=== PATIENT | male | born 1960 | race Native Hawaiian/Other Pacific Islander ===

== ENCOUNTER 2019-04-17 10:57 | Outpatient (CLI) | payer OTHER ==
[~2019-04-17 10:57] MED LIST: CITALOPRAM20 MG PO; FURO20TA67 PO; HYDR-3182 PO; MOBIC15 MG PO; MOTRIN PM PO; OLAN2.5T2 PO; PERCOGESI1 PO; POT CL MICRO20 MEQ OR
== END 2019-04-17 23:37 | disposition home or self-care (01) ==
LOC: RAD 10:57
DX: M25.561 Pain in right knee (principal); M25.562 Pain in left knee

== ENCOUNTER 2019-08-23 09:10 | Outpatient (CLI) | payer OTHER | END 2019-08-23 19:54 | disposition home or self-care (01) | LOC: RAD 09:10 | DX: R60.0 Localized edema (principal); R53.83 Other fatigue; R05 Cough; R53.81 Other malaise; Z79.899 Other long term (current) drug therapy; J44.9 Chronic obstructive pulmonary disease, unspecified ==

== ENCOUNTER 2020-01-26 11:12 | Emergency (ER) | payer OTHER ==
[~2020-01-26] VITALS: Ht 180.3 cm; Wt 164.2 kg
[~2020-01-26 11:12] MED LIST changes: +ALBUTEROL0.083 % INH; +CELEXA20 MG PO
[2020-01-26 11:53] LABS: PLATELET COUNT 167 K/uL (142-355)
[2020-01-26 12:03] LABS: POTASSIUM 3.7 mmol/L (3.6-5.2); SODIUM 130 mmol/L (136-145)
[2020-01-26 12:05] LABS: PARTIAL THROMBOPLASTIN TIME 25.4 SECONDS (24.5-33.6)
[2020-01-26 15:40] VITALS: BP 134/82; TEMP 98.6
== END 2020-01-26 15:40 | disposition home or self-care (01) ==
LOC: ED 11:12
PROVIDERS: Hospitalist
DX: J44.9 Chronic obstructive pulmonary disease, unspecified (principal); J11.1 Influenza due to unidentified influenza virus with other respiratory manifestations; M19.90 Unspecified osteoarthritis, unspecified site; R00.0 Tachycardia, unspecified; R06.02 Shortness of breath
CPT/HCPCS: 36415; 36600; 80053; 81000; 82550; 82805; 83880; 84484; 85027; 85610; 85730; 87502; 93005; 94664; 96360; 96361; 96365; 96375; 99284

== ENCOUNTER 2020-01-26 20:44 | Emergency (ER) | payer OTHER ==
[~2020-01-26] VITALS: Ht 180.3 cm; Wt 164.2 kg
[2020-01-26 21:26] LABS: PLATELET COUNT 175 K/uL (142-355)
[2020-01-26 21:44] LABS: POTASSIUM 3.7 mmol/L (3.6-5.2); SODIUM 129 mmol/L (136-145)
[2020-01-26 22:10] VITALS: BP 108/61; TEMP 100.2
== END 2020-01-26 22:10 | disposition home or self-care (01) ==
LOC: ED 20:48
PROVIDERS: Hospitalist
DX: E11.65 Type 2 diabetes mellitus with hyperglycemia (principal); Z79.84 Long term (current) use of oral hypoglycemic drugs; R00.0 Tachycardia, unspecified
CPT/HCPCS: 36415; 80053; 81002; 82962; 84484; 85027; 93005; 96360; 96375; 99284

== ENCOUNTER 2020-01-29 11:15 | Emergency (ER) | payer OTHER ==
[~2020-01-29] VITALS: Ht 180.3 cm; Wt 164.2 kg
[2020-01-29 11:44] LABS: PLATELET COUNT 164 K/uL (142-355)
[2020-01-29 12:20] LABS: POTASSIUM 3.7 mmol/L (3.6-5.2)
[2020-01-29 14:40] VITALS: BP 152/72; TEMP 98
== END 2020-01-29 14:40 | disposition home or self-care (01) ==
LOC: ED 11:15
PROVIDERS: Emergency Medicine
DX: R10.9 Unspecified abdominal pain (principal); R91.8 Other nonspecific abnormal finding of lung field
CPT/HCPCS: 36415; 80053; 81000; 82150; 83690; 85027; 96360; 96375; 99284; J1885; Q9963

== ENCOUNTER 2020-08-30 10:55 | Emergency (ER) | payer OTHER ==
[~2020-08-30] VITALS: Ht 180.3 cm; Wt 144.7 kg
[2020-08-30 11:38] LABS: PLATELET COUNT 187 K/uL (142-355)
[2020-08-30 11:47] LABS: POTASSIUM 3.8 mmol/L (3.6-5.2)
[2020-08-30 12:39] VITALS: BP 153/80; TEMP 98.7
== END 2020-08-30 12:39 | disposition home or self-care (01) ==
LOC: ED 10:55
PROVIDERS: Hospitalist
DX: E11.65 Type 2 diabetes mellitus with hyperglycemia (principal)
CPT/HCPCS: 36415; 80053; 81002; 85027; 99283

== ENCOUNTER 2020-10-12 07:59 | Emergency (ER) | payer OTHER ==
[~2020-10-12] VITALS: Ht 180.3 cm; Wt 161.9 kg
[2020-10-12 08:07] VITALS: TEMP 98.1
[2020-10-12 08:59] LABS: PLATELET COUNT 186 K/uL (142-355)
[2020-10-12 09:06] LABS: POTASSIUM 3.7 mmol/L (3.6-5.2)
[2020-10-12 12:22] VITALS: BP 160/70
== END 2020-10-12 12:23 | disposition home or self-care (01) ==
LOC: ED 07:59
PROVIDERS: Emergency Medicine Emergency Medical Services
DX: K59.09 Other constipation (principal); N39.0 Urinary tract infection, site not specified; N40.3 Nodular prostate with lower urinary tract symptoms
CPT/HCPCS: 36415; 80053; 81000; 83690; 84153; 85027; 87077; 87086; 87088; 87186; 96360; 96365; 99284; J0696; Q9963

== ENCOUNTER 2020-10-13 17:28 | Emergency (ER) | payer OTHER ==
[~2020-10-13] VITALS: Ht 180.3 cm; Wt 161.9 kg
[2020-10-13 17:45] VITALS: BP 202/93; TEMP 97.5
== END 2020-10-13 18:38 | disposition home or self-care (01) ==
LOC: ED 17:28
DX: K59.09 Other constipation (principal); R10.84 Generalized abdominal pain
CPT/HCPCS: 99281

== ENCOUNTER 2020-11-01 12:16 | Emergency (ER) | payer OTHER ==
[~2020-11-01] VITALS: Ht 180.3 cm; Wt 159.7 kg
[2020-11-01 12:57] LABS: PLATELET COUNT 188 K/uL (142-355)
[2020-11-01 13:03] LABS: POTASSIUM 4.4 mmol/L (3.6-5.2)
[2020-11-01 13:16] LABS: PARTIAL THROMBOPLASTIN TIME 26.9 SECONDS (24.5-33.6)
[2020-11-01 17:10] VITALS: BP 126/80; TEMP 97.7
== END 2020-11-01 16:35 | disposition home or self-care (01) ==
LOC: ED 12:16
PROVIDERS: Hospitalist
DX: K59.09 Other constipation (principal); R10.84 Generalized abdominal pain; G89.29 Other chronic pain; R11.2 Nausea with vomiting, unspecified
CPT/HCPCS: 80053; 81000; 82150; 83690; 85027; 85610; 85730; 87651; 96360; 96375; 99284; J2405; Q9963

== ENCOUNTER 2020-11-10 14:23 | Emergency (ER) | payer OTHER ==
[~2020-11-10] VITALS: Ht 180.3 cm; Wt 159.7 kg
[2020-11-10 14:33] VITALS: TEMP 97.5
[2020-11-10 15:06] VITALS: BP 148/85
[2020-11-10 15:39] LABS: PLATELET COUNT 194 K/uL (142-355)
[2020-11-10 16:36] LABS: POTASSIUM 4.5 mmol/L (3.6-5.2); SODIUM 139 mmol/L (136-145)
== END 2020-11-10 17:22 | disposition home or self-care (01) ==
LOC: ED 14:23
PROVIDERS: Family Medicine
DX: R00.2 Palpitations (principal); F41.8 Other specified anxiety disorders; I10 Essential (primary) hypertension; E11.9 Type 2 diabetes mellitus without complications
CPT/HCPCS: 80053; 81000; 82962; 84484; 85027; 93005; 99283

== ENCOUNTER 2020-11-24 15:21 | Outpatient (CLI) | payer OTHER ==
[2020-11-24 15:44] LABS: PLATELET COUNT 210 K/uL (142-355)
== END 2020-11-24 22:10 | disposition home or self-care (01) ==
LOC: LABW 15:21
PROVIDERS: ATTEND Family Medicine
DX: R10.11 Right upper quadrant pain (principal)
CPT/HCPCS: 36415; 80053; 82150; 83690; 85027

== ENCOUNTER 2020-11-24 22:50 | Emergency (ER) | payer OTHER ==
[~2020-11-24] VITALS: Ht 180.3 cm; Wt 164.2 kg
[2020-11-25 01:54] LABS: PLATELET COUNT 178 K/uL (142-355)
[2020-11-25 02:28] LABS: POTASSIUM 3.9 mmol/L (3.6-5.2)
[2020-11-25 03:05] VITALS: BP 133/80; TEMP 97.8
== END 2020-11-25 03:05 | disposition home or self-care (01) ==
LOC: ED 22:55
PROVIDERS: Emergency Medicine Emergency Medical Services
DX: K80.50 Calculus of bile duct without cholangitis or cholecystitis without obstruction (principal)
CPT/HCPCS: 36415; 80053; 81000; 82150; 83690; 85027; 96360; 96361; 96375; 99284; J1885

== ENCOUNTER 2020-11-26 04:27 | Emergency (ER) | payer OTHER ==
[~2020-11-26] VITALS: Ht 180.3 cm; Wt 159.7 kg
[2020-11-26 06:25] VITALS: BP 152/70; TEMP 97.7
== END 2020-11-26 06:25 | disposition home or self-care (01) ==
LOC: ED 04:27
DX: R10.84 Generalized abdominal pain (principal); M79.18 Myalgia, other site; G89.29 Other chronic pain; N30.80 Other cystitis without hematuria; I10 Essential (primary) hypertension; Z13.6 Encounter for screening for cardiovascular disorders
CPT/HCPCS: 81000; 96372; 99283; J0696; J1885; J2360

== ENCOUNTER 2020-11-26 08:13 | Outpatient (CLI) | payer OTHER | END 2020-11-26 21:11 | disposition home or self-care (01) | LOC: US 08:13 | PROVIDERS: ATTEND Nurse Practitioner Family | DX: I10 Essential (primary) hypertension (principal); Z13.6 Encounter for screening for cardiovascular disorders ==

== ENCOUNTER 2020-12-01 08:26 | Outpatient (CLI) | payer OTHER ==
[~2020-12-01] VITALS: Ht 180.3 cm; Wt 157.9 kg
== END 2020-12-01 23:14 | disposition home or self-care (01) ==
LOC: NM 08:26
PROVIDERS: ATTEND Nurse Practitioner Family
DX: I10 Essential (primary) hypertension (principal); Z79.899 Other long term (current) drug therapy
CPT/HCPCS: A9500; J2785

== ENCOUNTER 2020-12-07 09:07 | Outpatient (CLI) | payer OTHER | END 2020-12-07 18:59 | disposition home or self-care (01) | LOC: US 09:07 | PROVIDERS: ATTEND Nurse Practitioner Family | DX: R10.11 Right upper quadrant pain (principal) ==

== ENCOUNTER 2021-01-15 12:09 | Emergency (ER) | payer OTHER ==
[~2021-01-15] VITALS: Ht 180.3 cm; Wt 157.4 kg
[2021-01-15 12:28] VITALS: TEMP 97.8
[2021-01-15 13:49] LABS: PLATELET COUNT 181 K/uL (142-355)
[2021-01-15 15:22] VITALS: BP 156/84
== END 2021-01-15 15:22 | disposition home or self-care (01) ==
LOC: ED 12:09
PROVIDERS: Family Medicine
DX: R11.0 Nausea (principal); R53.83 Other fatigue; Z03.818 Encounter for observation for suspected exposure to other biological agents ruled out
CPT/HCPCS: 80053; 81000; 85027; 87077; 87086; 87088; 87185; 87186; 87502; 87635; 99283; U0003

== ENCOUNTER 2021-02-22 16:06 | Observation (INO) | payer OTHER ==
[~2021-02-22] VITALS: Ht 180.3 cm; Wt 153.9 kg
[2021-02-22 17:45] LABS: PLATELET COUNT 188 K/uL (142-355)
[2021-02-22 18:02] LABS: POTASSIUM 3.9 mmol/L (3.6-5.2); SODIUM 136 mmol/L (136-145)
[2021-02-22 18:27] LABS: PARTIAL THROMBOPLASTIN TIME 25.5 SECONDS (24.5-33.6)
[2021-02-22 19:50] VITALS: BP 141/69; TEMP 98.3; Ht 180.3 cm; Wt 153.9 kg
[2021-02-22 20:00] VITALS: BP 140/77; TEMP 98.6
[2021-02-22] MEDS ORDERED: CITA20TA2 PO (23:12)
[2021-02-22] MEDS ORDERED: TRAMADOL HYDROC50 MG PO (23:26)
[2021-02-22] MEDS ORDERED: NEURONTIN 100M100 MG PO (23:29)
[2021-02-22] MEDS ORDERED: LOSA50TA PO (23:31)
[2021-02-22] MEDS ORDERED: FERROUS SULF325 M1 PO (23:32)
[2021-02-22] MEDS ORDERED: TOPAMAX PO (23:34)
[2021-02-22] MEDS ORDERED: METF500T PO (23:34)
[2021-02-22] MEDS ORDERED: PANTOPRAZOLE 40MG TA PO (23:36)
[2021-02-23 00:13] VITALS: BP 122/67; TEMP 97.7
[2021-02-23 04:00] VITALS: BP 106/73; TEMP 97.9
[2021-02-23 08:00] VITALS: BP 123/60; TEMP 97.5
[2021-02-23 08:15] LABS: PLATELET COUNT 178 K/uL (142-355)
[2021-02-23 08:31] LABS: POTASSIUM 4.3 mmol/L (3.6-5.2)
[2021-02-23 12:00] VITALS: BP 155/63; TEMP 97.8
[2021-02-23 16:00] VITALS: BP 111/57; TEMP 97.6
[2021-02-23 20:00] VITALS: BP 161/88; TEMP 97.4
[2021-02-24 00:16] VITALS: BP 131/70; TEMP 97.9
[2021-02-24 04:00] VITALS: BP 138/64; TEMP 98.1
[2021-02-24 08:30] VITALS: BP 132/77; TEMP 98.2
== END 2021-02-24 08:50 | disposition home or self-care (01) ==
LOC: MED/SURG 16:06
PROVIDERS: ADMIT Family Medicine; ATTEND Family Medicine
DX: R07.89 Other chest pain (principal); I20.8 Other forms of angina pectoris; I10 Essential (primary) hypertension; E11.9 Type 2 diabetes mellitus without complications; J43.9 Emphysema, unspecified; E66.8 Other obesity; N39.0 Urinary tract infection, site not specified; I73.89 Other specified peripheral vascular diseases; M15.8 Other polyosteoarthritis; M06.8A Other specified rheumatoid arthritis, other specified site
CPT/HCPCS: 36415; 80053; 81000; 82550; 82948; 83735; 84100; 84484; 85027; 85610; 85730; 87077; 87086; 87088; 87186; 87635; 93005; 96372; 96374; 96375; 99220; G0378; G0379; J1650; U0003

== ENCOUNTER 2021-03-01 14:34 | Emergency (ER) | payer OTHER ==
[~2021-03-01] VITALS: Ht 180.3 cm; Wt 153.8 kg
[~2021-03-01 14:34] MED LIST changes: +CITA20TA2 PO; +FERROUS SULF325 M1 PO; +LOSA50TA PO; +METF500T PO; +NEURONTIN 100M100 MG PO; +PANTOPRAZOLE 40MG TA PO; +TOPAMAX PO; +TRAMADOL HYDROC50 MG PO
[2021-03-01 14:45] VITALS: TEMP 98.2
[2021-03-01 15:05] LABS: PLATELET COUNT 199 K/uL (142-355)
[2021-03-01 15:10] LABS: POTASSIUM 4.2 mmol/L (3.6-5.2); SODIUM 139 mmol/L (136-145)
[2021-03-01 15:28] LABS: PARTIAL THROMBOPLASTIN TIME 25.1 SECONDS (24.5-33.6)
[2021-03-01 16:19] VITALS: BP 141/66
== END 2021-03-01 16:20 | disposition home or self-care (01) ==
LOC: ED 14:34
PROVIDERS: Hospitalist
DX: I95.89 Other hypotension (principal); K21.9 Gastro-esophageal reflux disease without esophagitis; N39.0 Urinary tract infection, site not specified; Z98.890 Other specified postprocedural states; Z79.899 Other long term (current) drug therapy; Z51.81 Encounter for therapeutic drug level monitoring
CPT/HCPCS: 80053; 80320; 81000; 82550; 83880; 84484; 85027; 85610; 85730; 87077; 87086; 87088; 87186; 93005; 96372; 99283; J0696

== ENCOUNTER 2021-03-09 10:12 | Emergency (ER) | payer OTHER ==
[~2021-03-09] VITALS: Ht 180.3 cm; Wt 155.1 kg
[2021-03-09 11:40] VITALS: BP 156/75; TEMP 97.9
== END 2021-03-09 11:40 | disposition home or self-care (01) ==
LOC: ED 10:12
DX: Z20.822 Contact with and (suspected) exposure to COVID-19 (principal)
CPT/HCPCS: 87635; 99282; U0003

== ENCOUNTER 2021-03-16 16:11 | Emergency (ER) | payer OTHER ==
[~2021-03-16] VITALS: Ht 180.3 cm; Wt 155.1 kg
[2021-03-16 16:11] VITALS: TEMP 97.8
[2021-03-16 17:33] LABS: PLATELET COUNT 201 K/uL (142-355)
[2021-03-16 17:38] LABS: SODIUM 139 mmol/L (136-145)
[2021-03-16 18:31] VITALS: BP 151/79
== END 2021-03-16 19:10 | disposition home or self-care (01) ==
LOC: ED 16:11
PROVIDERS: Family Medicine
DX: R00.2 Palpitations (principal); N39.0 Urinary tract infection, site not specified; Z11.52 Encounter for screening for COVID-19
CPT/HCPCS: 80053; 81000; 82550; 84484; 85027; 87077; 87086; 87088; 87186; 87635; 93005; 99283; U0003

== ENCOUNTER 2021-03-27 21:29 | Emergency (ER) | payer OTHER ==
[~2021-03-27] VITALS: Ht 180.3 cm; Wt 155.1 kg
[2021-03-27 22:32] LABS: PLATELET COUNT 189 K/uL (142-355)
[2021-03-27 22:39] LABS: POTASSIUM 3.9 mmol/L (3.6-5.2); SODIUM 137 mmol/L (136-145)
[2021-03-28 00:17] VITALS: BP 100/52; TEMP 98.1
== END 2021-03-28 00:17 | disposition home or self-care (01) ==
LOC: ED 21:29
PROVIDERS: Emergency Medicine Emergency Medical Services
DX: K21.9 Gastro-esophageal reflux disease without esophagitis (principal); R53.1 Weakness; Z98.890 Other specified postprocedural states
CPT/HCPCS: 36415; 80048; 81000; 83735; 83880; 84484; 85027; 87077; 87086; 87088; 87186; 93005; 96360; 96361; 96374; 99284; J2405

== ENCOUNTER 2021-04-01 04:33 | Emergency (ER) | payer OTHER ==
[~2021-04-01] VITALS: Ht 180.3 cm; Wt 154.2 kg
[2021-04-01 05:28] VITALS: BP 133/64; TEMP 98.5
== END 2021-04-01 05:28 | disposition home or self-care (01) ==
LOC: ED 04:33
DX: I10 Essential (primary) hypertension (principal)
CPT/HCPCS: 99281

== ENCOUNTER 2021-04-06 09:13 | Emergency (ER) | payer OTHER ==
[~2021-04-06] VITALS: Ht 180.3 cm; Wt 154.2 kg
[2021-04-06 09:19] VITALS: BP 171/81; TEMP 97.5
== END 2021-04-06 11:27 | disposition home or self-care (01) ==
LOC: ED 09:13
DX: R35.8 Other polyuria (principal); Z20.822 Contact with and (suspected) exposure to COVID-19
CPT/HCPCS: 81000; 87077; 87086; 87088; 87186; 87635; 99283; U0003

== ENCOUNTER 2021-05-13 10:25 | Emergency (ER) | payer OTHER ==
[2021-05-19 16:05] LABS: PLATELET COUNT 179 K/uL (142-355)
[2021-05-19 16:06] LABS: POTASSIUM 4.1 mmol/L (3.6-5.2); SODIUM 138 mmol/L (136-145)
== END 2021-05-13 12:42 | disposition home or self-care (01) ==
LOC: ED 10:25
PROVIDERS: Emergency Medicine
DX: R06.09 Other forms of dyspnea (principal); I10 Essential (primary) hypertension; F41.8 Other specified anxiety disorders; E66.8 Other obesity; M54.2 Cervicalgia; G89.29 Other chronic pain; Z98.890 Other specified postprocedural states
CPT/HCPCS: 80048; 82550; 84484; 85027; 85379; 93005; 99283

== ENCOUNTER 2021-06-05 11:53 | Emergency (ER) | payer OTHER ==
[~2021-06-05] VITALS: Ht 180.3 cm; Wt 154.2 kg
[2021-06-05 12:53] LABS: PLATELET COUNT 189 K/uL (142-355)
[2021-06-05 13:01] LABS: POTASSIUM 4.7 mmol/L (3.6-5.2); SODIUM 139 mmol/L (136-145)
[2021-06-05 13:05] LABS: PARTIAL THROMBOPLASTIN TIME 26.4 SECONDS (24.5-33.6)
[2021-06-05 14:41] VITALS: BP 117/65; TEMP 98.1
== END 2021-06-05 14:43 | disposition home or self-care (01) ==
LOC: ED 11:53
PROVIDERS: Family Medicine
DX: R07.89 Other chest pain (principal); N39.0 Urinary tract infection, site not specified; E11.9 Type 2 diabetes mellitus without complications; R51.9 Headache, unspecified; J32.8 Other chronic sinusitis; W07.XXXA Fall from chair, initial encounter; Y92.098 Other place in other non-institutional residence as the place of occurrence of the external cause
CPT/HCPCS: 36415; 80053; 81000; 82150; 82550; 83690; 84484; 85027; 85379; 85610; 85730; 87077; 87086; 87088; 87186; 93005; 99284

== ENCOUNTER 2021-06-16 16:37 | Emergency (ER) | payer OTHER ==
[~2021-06-16] VITALS: Ht 180.3 cm; Wt 154.2 kg
[2021-06-16 17:40] VITALS: BP 151/65; TEMP 97.6
== END 2021-06-16 17:40 | disposition home or self-care (01) ==
LOC: ED 16:37
DX: R60.0 Localized edema (principal); F41.8 Other specified anxiety disorders
CPT/HCPCS: 99281

== ENCOUNTER 2021-06-18 17:51 | Emergency (ER) | payer OTHER | END 2021-06-18 19:12 | disposition home or self-care (01) | LOC: ED 17:51 | DX: R31.9 Hematuria, unspecified (principal) | CPT/HCPCS: 99281 ==

== ENCOUNTER 2021-07-14 02:17 | Emergency (ER) | payer OTHER ==
[~2021-07-14] VITALS: Ht 180.3 cm; Wt 160.6 kg
[2021-07-14 02:25] VITALS: BP 143/80; TEMP 97.8
== END 2021-07-14 05:28 | disposition home or self-care (01) ==
LOC: ED 02:17
DX: J45.21 Mild intermittent asthma with (acute) exacerbation (principal); Z20.822 Contact with and (suspected) exposure to COVID-19; Z77.22 Contact with and (suspected) exposure to environmental tobacco smoke (acute) (chronic)
CPT/HCPCS: 87635; 94664; 99283; U0003

== ENCOUNTER 2021-07-30 13:18 | Outpatient (CLI) | payer OTHER | END 2021-07-30 19:20 | disposition home or self-care (01) | LOC: US 13:18 | PROVIDERS: ATTEND Nurse Practitioner Family | DX: I73.9 Peripheral vascular disease, unspecified (principal); R19.5 Other fecal abnormalities | CPT/HCPCS: 82272 ==

== ENCOUNTER 2021-08-06 23:22 | Emergency (ER) | payer OTHER ==
[~2021-08-06] VITALS: Ht 180.3 cm; Wt 160.6 kg
[2021-08-07 00:35] VITALS: BP 143/77; TEMP 98.2
== END 2021-08-07 00:35 | disposition home or self-care (01) ==
LOC: ED 23:22
DX: R55 Syncope and collapse (principal)
CPT/HCPCS: 99282

== ENCOUNTER 2021-08-09 07:51 | Emergency (ER) | payer OTHER ==
[~2021-08-09] VITALS: Ht 180.3 cm; Wt 159.7 kg
[2021-08-09 09:06] LABS: PLATELET COUNT 170 K/uL (142-355)
[2021-08-09 09:15] LABS: POTASSIUM 4.1 mmol/L (3.6-5.2); SODIUM 136 mmol/L (136-145)
[2021-08-09 09:29] LABS: PARTIAL THROMBOPLASTIN TIME 26.9 SECONDS (24.5-33.6)
[2021-08-09 11:15] VITALS: BP 166/69; TEMP 98.3
== END 2021-08-09 11:23 | disposition home or self-care (01) ==
LOC: ED 07:51
PROVIDERS: Emergency Medicine Emergency Medical Services
DX: J20.9 Acute bronchitis, unspecified (principal); R09.1 Pleurisy; F17.210 Nicotine dependence, cigarettes, uncomplicated
CPT/HCPCS: 80053; 83735; 84484; 85027; 85379; 85610; 85730; 87040; 87651; 93005; 96365; 99283; 99284; J0696

== ENCOUNTER 2021-08-12 12:40 | Outpatient (CLI) | payer OTHER ==
[2021-08-12 12:56] LABS: PLATELET COUNT 185 K/uL (142-355)
[2021-08-12 13:36] LABS: POTASSIUM 4.1 mmol/L (3.6-5.2); SODIUM 138 mmol/L (136-145)
== END 2021-08-12 18:00 | disposition home or self-care (01) ==
LOC: LABW 12:40
PROVIDERS: ATTEND Nurse Practitioner Family
DX: R06.09 Other forms of dyspnea (principal); Z87.898 Personal history of other specified conditions
CPT/HCPCS: 36415; 80053; 82550; 82553; 83880; 84484; 85027; 86140

== ENCOUNTER 2021-08-25 09:08 | Outpatient (CLI) | payer OTHER | END 2021-08-25 20:04 | disposition home or self-care (01) | LOC: US 09:08 | PROVIDERS: ATTEND Nurse Practitioner Family | DX: N28.1 Cyst of kidney, acquired (principal) ==

== ENCOUNTER → 2021-09-02 | Emergency (ER) | payer OTHER ==
[~2021-09-02] VITALS: Ht 180.3 cm; Wt 159.7 kg
[2021-09-02 22:45] VITALS: BP 114/75
[2021-09-02 23:08] LABS: PLATELET COUNT 199 K/uL (142-355)
[2021-09-02 23:15] LABS: POTASSIUM 3.9 mmol/L (3.6-5.2)
== END ==
LOC: ED 22:36
PROVIDERS: Hospitalist
DX: N30.90 Cystitis, unspecified without hematuria (principal); N39.0 Urinary tract infection, site not specified
CPT/HCPCS: 36415; 80048; 81000; 85027; 87077; 87086; 87088; 87186; 96372; 99283; J0696; J1885

== ENCOUNTER 2021-09-21 17:10 | Emergency (ER) | payer OTHER ==
[~2021-09-21] VITALS: Ht 180.3 cm; Wt 163.3 kg
[2021-09-21 17:20] VITALS: BP 127/79; TEMP 97.9
== END 2021-09-21 18:28 | disposition home or self-care (01) ==
LOC: ED 17:10
DX: M54.59 Other low back pain (principal); S39.012A Strain of muscle, fascia and tendon of lower back, initial encounter; G89.29 Other chronic pain; X50.9XXA Other and unspecified overexertion or strenuous movements or postures, initial encounter; Y92.22 Religious institution as the place of occurrence of the external cause
CPT/HCPCS: 96372; 99283; J1885

== ENCOUNTER 2021-09-21 19:42 | Emergency (ER) | payer OTHER ==
[~2021-09-21] VITALS: Ht 180.3 cm; Wt 163.3 kg
[2021-09-21 22:40] VITALS: BP 158/72; TEMP 98.7
== END 2021-09-21 22:40 | disposition home or self-care (01) ==
LOC: ED 19:42
DX: M54.59 Other low back pain (principal); N39.0 Urinary tract infection, site not specified; N23 Unspecified renal colic
CPT/HCPCS: 81000; 99282; 99283

== ENCOUNTER 2021-09-22 05:51 | Emergency (ER) | payer OTHER ==
[~2021-09-22] VITALS: Ht 180.3 cm; Wt 154.2 kg
[2021-09-22 06:12] VITALS: TEMP 98.2
[2021-09-22 06:51] VITALS: BP 133/82
== END 2021-09-22 06:51 | disposition home or self-care (01) ==
LOC: ED 05:51
DX: N40.1 Benign prostatic hyperplasia with lower urinary tract symptoms (principal); R33.8 Other retention of urine; T83.031A Leakage of indwelling urethral catheter, initial encounter; Y84.9 Medical procedure, unspecified as the cause of abnormal reaction of the patient, or of later complication, without mention of misadventure at the time of the procedure; Y92.238 Other place in hospital as the place of occurrence of the external cause
CPT/HCPCS: 99282

== ENCOUNTER 2021-10-11 21:34 | Emergency (ER) | payer OTHER ==
[~2021-10-11] VITALS: Ht 180.3 cm; Wt 154.2 kg
[2021-10-11 23:35] VITALS: BP 145/76; TEMP 98.5
== END 2021-10-11 23:40 | disposition home or self-care (01) ==
LOC: ED 21:34
DX: M54.59 Other low back pain (principal); G89.29 Other chronic pain; N39.0 Urinary tract infection, site not specified
CPT/HCPCS: 81000; 87077; 87086; 87088; 87186; 96372; 99283; J0696; J1885; J2930

== ENCOUNTER 2021-11-17 09:47 | Outpatient (CLI) | payer OTHER | END 2021-11-17 19:58 | disposition home or self-care (01) | LOC: LABW 09:47 | PROVIDERS: ATTEND Internal Medicine Cardiovascular Disease | DX: Z79.899 Other long term (current) drug therapy (principal) | CPT/HCPCS: 36415; 80048; 83880 ==

== ENCOUNTER 2021-11-22 00:02 | Emergency (ER) | payer OTHER ==
[~2021-11-22] VITALS: Ht 180.3 cm; Wt 158.8 kg
[2021-11-22 01:33] LABS: PLATELET COUNT 138 K/uL (142-355)
[2021-11-22 03:29] LABS: PLATELET COUNT 130 K/uL (142-355)
[2021-11-22 04:35] VITALS: BP 145/72; TEMP 98.4
== END 2021-11-22 04:35 | disposition home or self-care (01) ==
LOC: ED 00:02
PROVIDERS: Emergency Medicine Emergency Medical Services
DX: R19.7 Diarrhea, unspecified (principal); U07.1 COVID-19
CPT/HCPCS: 36415; 80053; 81000; 83690; 85027; 85379; 87635; 96360; 96361; 99284; U0003

== ENCOUNTER 2021-11-24 05:19 | Observation (INO) | payer OTHER ==
[2021-11-24] VITALS (9 sets, daily range): BP systolic 115–160; BP diastolic 52–75; TEMP 97.4–98.5; Ht 180.3 cm; Wt 150.2 kg
[~2021-11-24] VITALS: Ht 180.3 cm; Wt 150.2 kg
[2021-11-24 05:45] LABS: PLATELET COUNT 127 K/uL (142-355)
[2021-11-24 05:53] LABS: POTASSIUM 3.7 mmol/L (3.6-5.2)
[2021-11-24 05:56] LABS: PARTIAL THROMBOPLASTIN TIME 27.4 SECONDS (24.5-33.6)
[2021-11-24] MEDS ORDERED: PANTOPRAZOLE 40MG TA PO (14:02)
[2021-11-24] MEDS ORDERED: MELOXICAM7.5 MG PO (14:03)
[2021-11-24] MEDS ORDERED: CITALOPRAM20 M1 PO (14:03)
[2021-11-24] MEDS ORDERED: AZIT250T3 PO (14:04)
[2021-11-24] MEDS ORDERED: Z-PAK PO (16:31)
[2021-11-24] MEDS ORDERED: IVERMECTIN3 MG PO (16:32)
[2021-11-24] MEDS ORDERED: CITALOPRAM20 MG PO (16:32)
[2021-11-24] MEDS ORDERED: ALBUTEROL0.083 % INH (16:34)
[2021-11-24] MEDS ORDERED: DUTASTERIDE0.5 MG PO (16:35)
[2021-11-25] VITALS: BP 130/69; TEMP 98.6
[2021-11-25 04:00] VITALS: BP 125/62; TEMP 97.6
[2021-11-25 05:04] LABS: PLATELET COUNT 112 K/uL (142-355)
[2021-11-25 12:00] VITALS: BP 138/77; TEMP 98.6
== END 2021-11-25 12:37 | disposition home or self-care (01) ==
LOC: ED 05:19 → MED/SURG 09:20
PROVIDERS: Hospitalist; ADMIT Internal Medicine Endocrinology, Diabetes & Metabolism; ATTEND Internal Medicine Endocrinology, Diabetes & Metabolism
DX: U07.1 COVID-19 (principal); R07.89 Other chest pain; E66.01 Morbid (severe) obesity due to excess calories; Z68.42 Body mass index [BMI] 45.0-49.9, adult; I10 Essential (primary) hypertension; E78.49 Other hyperlipidemia; K21.9 Gastro-esophageal reflux disease without esophagitis; E11.69 Type 2 diabetes mellitus with other specified complication; R06.02 Shortness of breath
CPT/HCPCS: 36415; 80048; 80053; 82550; 83880; 84484; 85027; 85379; 85610; 85730; 87635; 93005; 96374; 99220; 99284; G0378; J1650; J2405; U0003

== ENCOUNTER 2021-12-24 20:03 | Emergency (ER) | payer OTHER ==
[~2021-12-24] VITALS: Ht 180.3 cm; Wt 150.1 kg
[~2021-12-24 20:03] MED LIST changes: +AZIT250T3 PO; +CITALOPRAM20 M1 PO; +DUTASTERIDE0.5 MG PO; +IVERMECTIN3 MG PO; +MELOXICAM7.5 MG PO; +Z-PAK PO
[2021-12-24 20:10] VITALS: BP 150/72; TEMP 97.8
== END 2021-12-24 20:15 | disposition home or self-care (01) ==
LOC: ED 20:03
DX: Z53.21 Procedure and treatment not carried out due to patient leaving prior to being seen by health care provider (principal)
CPT/HCPCS: 99281

== ENCOUNTER 2022-05-14 20:46 | Emergency (ER) | payer OTHER ==
[~2022-05-14] VITALS: Ht 180.3 cm; Wt 150.1 kg
[2022-05-14 21:51] LABS: PLATELET COUNT 154 K/uL (142-355)
[2022-05-14 21:54] LABS: POTASSIUM 3.8 mmol/L (3.6-5.2)
[2022-05-14 23:00] VITALS: BP 134/72; TEMP 97.9
== END 2022-05-14 23:00 | disposition home or self-care (01) ==
LOC: ED 20:46
PROVIDERS: Family Medicine
DX: K52.89 Other specified noninfective gastroenteritis and colitis (principal); R30.0 Dysuria; E11.9 Type 2 diabetes mellitus without complications; I10 Essential (primary) hypertension
CPT/HCPCS: 80053; 81002; 82150; 83690; 85027; 99283

== ENCOUNTER 2022-07-12 16:38 | Emergency (ER) | payer OTHER ==
[~2022-07-12] VITALS: Ht 180.3 cm; Wt 150.1 kg
[2022-07-12 16:40] VITALS: TEMP 98
[2022-07-12 17:20] LABS: PLATELET COUNT 164 K/uL (142-355)
[2022-07-12 17:42] LABS: POTASSIUM 3.6 mmol/L (3.6-5.2)
[2022-07-12 18:10] VITALS: BP 138/88
== END 2022-07-12 18:10 | disposition home or self-care (01) ==
LOC: ED 16:38
PROVIDERS: Emergency Medicine
DX: B86 Scabies (principal); J32.9 Chronic sinusitis, unspecified; R51.9 Headache, unspecified; E11.9 Type 2 diabetes mellitus without complications; Z79.84 Long term (current) use of oral hypoglycemic drugs
CPT/HCPCS: 80048; 85027; 99283; J0696

== ENCOUNTER → 2022-07-14 | Emergency (ER) | payer OTHER ==
[~2022-07-14] VITALS: Ht 180.3 cm; Wt 150.1 kg
[2022-07-14 15:05] VITALS: BP 148/70; TEMP 98.3
== END | disposition home or self-care (01) ==
LOC: ED 15:03
DX: Z53.21 Procedure and treatment not carried out due to patient leaving prior to being seen by health care provider (principal)
CPT/HCPCS: 99281

== ENCOUNTER 2022-07-16 00:23 | Emergency (ER) | payer OTHER ==
[~2022-07-16] VITALS: Ht 180.3 cm; Wt 148.3 kg
[2022-07-16 01:02] LABS: PLATELET COUNT 172 K/uL (142-355)
[2022-07-16 01:11] LABS: POTASSIUM 3.8 mmol/L (3.6-5.2)
[2022-07-16 04:08] VITALS: BP 124/66; TEMP 97.3
== END 2022-07-16 04:08 | disposition home or self-care (01) ==
LOC: ED 00:23
PROVIDERS: Emergency Medicine
DX: R07.89 Other chest pain (principal); R06.02 Shortness of breath; R00.2 Palpitations
CPT/HCPCS: 36415; 80053; 81002; 83690; 83880; 84443; 84484; 85027; 93005; 96374; 96375; 99284; J1885; J2405; J3490

== ENCOUNTER 2022-08-06 09:32 | Emergency (ER) | payer OTHER ==
[~2022-08-06] VITALS: Ht 180.3 cm; Wt 148.3 kg
[2022-08-06 09:45] VITALS: TEMP 97.3
[2022-08-06 10:29] LABS: PLATELET COUNT 165 K/uL (142-355)
[2022-08-06 10:45] LABS: POTASSIUM 3.8 mmol/L (3.6-5.2)
[2022-08-06 11:49] VITALS: BP 126/69
== END 2022-08-06 11:51 | disposition home or self-care (01) ==
LOC: ED 09:32
PROVIDERS: Emergency Medicine
DX: R09.89 Other specified symptoms and signs involving the circulatory and respiratory systems (principal); R05.8 Other specified cough; R06.02 Shortness of breath
CPT/HCPCS: 80053; 83880; 84484; 85027; 93005; 99283

== ENCOUNTER 2022-08-29 19:27 | Emergency (ER) | payer OTHER ==
[~2022-08-29] VITALS: Ht 180.3 cm; Wt 148.3 kg
[2022-08-29 20:43] LABS: PLATELET COUNT 180 K/uL (142-355)
[2022-08-29 21:03] LABS: POTASSIUM 3.7 mmol/L (3.6-5.2)
[2022-08-29 23:20] VITALS: BP 136/68; TEMP 99
== END 2022-08-29 23:20 | disposition home or self-care (01) ==
LOC: ED 19:27
PROVIDERS: Emergency Medicine Emergency Medical Services
DX: J44.1 Chronic obstructive pulmonary disease with (acute) exacerbation (principal); J10.1 Influenza due to other identified influenza virus with other respiratory manifestations; Z20.822 Contact with and (suspected) exposure to COVID-19
CPT/HCPCS: 36415; 80048; 84484; 85027; 87040; 87502; 87635; 87651; 93005; 94664; 96360; 96361; 96365; 96366; 99284; J1956; U0003

== ENCOUNTER 2023-01-15 06:15 | Emergency (ER) | payer OTHER ==
[~2023-01-15] VITALS: Ht 180.3 cm; Wt 145.2 kg
[2023-01-15 06:17] VITALS: TEMP 98.4
[2023-01-15 07:06] LABS: PLATELET COUNT 194 K/uL (142-355)
[2023-01-15 07:08] LABS: POTASSIUM 3.5 mmol/L (3.6-5.2)
[2023-01-15 07:19] LABS: PARTIAL THROMBOPLASTIN TIME 27.6 SECONDS (24.5-33.6)
[2023-01-15 08:24] VITALS: BP 154/71
== END 2023-01-15 08:24 | disposition home or self-care (01) ==
LOC: ED 06:15
PROVIDERS: Family Medicine
DX: R07.89 Other chest pain (principal); R06.09 Other forms of dyspnea; Z98.890 Other specified postprocedural states
CPT/HCPCS: 80053; 82550; 84484; 85027; 85379; 85610; 85730; 93005; 99283

== ENCOUNTER 2023-03-19 08:28 | Emergency (ER) | payer OTHER ==
[~2023-03-19] VITALS: Ht 180.3 cm; Wt 161.5 kg
[2023-03-19 08:36] VITALS: BP 147/76; TEMP 99.3
[2023-03-19 09:40] LABS: PLATELET COUNT 197 K/uL (142-355)
[2023-03-19 09:51] LABS: POTASSIUM 4.2 mmol/L (3.6-5.2)
== END 2023-03-19 12:56 | disposition home or self-care (01) ==
LOC: ED 08:28
PROVIDERS: Family Medicine
DX: R10.9 Unspecified abdominal pain (principal); A08.8 Other specified intestinal infections; K31.84 Gastroparesis; Z87.891 Personal history of nicotine dependence
CPT/HCPCS: 36415; 80053; 80307; 81002; 82150; 83690; 84484; 85027; 93005; 99283; Q9963

== ENCOUNTER 2023-06-27 07:38 | Emergency (ER) | payer OTHER ==
[~2023-06-27] VITALS: Ht 180.3 cm; Wt 164.2 kg
[2023-06-27 07:42] VITALS: TEMP 98.3
[2023-06-27 08:15] LABS: PLATELET COUNT 185 K/uL (142-355)
[2023-06-27 08:24] LABS: POTASSIUM 4.1 mmol/L (3.6-5.2)
[2023-06-27 08:47] VITALS: BP 132/79
== END 2023-06-27 08:47 | disposition home or self-care (01) ==
LOC: ED 07:38
PROVIDERS: Family Medicine
DX: R51.9 Headache, unspecified (principal); N39.0 Urinary tract infection, site not specified; I10 Essential (primary) hypertension
CPT/HCPCS: 80053; 81002; 85027; 96372; 99283; J1885

== ENCOUNTER 2023-07-17 13:51 | Observation (INO) | payer OTHER ==
[~2023-07-17] VITALS: Ht 180.3 cm; Wt 148.4 kg
[2023-07-17 14:00] VITALS: BP 175/83; TEMP 98
[2023-07-17 14:19] LABS: PLATELET COUNT 214 K/uL (142-355)
[2023-07-17] MEDS ORDERED: METF500T PO (17:54)
[2023-07-17] MEDS ORDERED: IBU800 MG PO (17:54)
[2023-07-17 18:23] VITALS: BP 132/64; TEMP 97.7; Ht 180.3 cm; Wt 148.4 kg
[2023-07-17] MEDS ORDERED: BURDOCK ROOT PO (19:00)
[2023-07-17 20:00] VITALS: BP 114/56; TEMP 98.1
[2023-07-17 23:37] VITALS: BP 122/68; TEMP 97.5
[2023-07-18 03:37] VITALS: BP 129/79; TEMP 98
[2023-07-18 05:37] LABS: PLATELET COUNT 181 K/uL (142-355)
[2023-07-18 05:55] LABS: POTASSIUM 4.2 mmol/L (3.6-5.2)
[2023-07-18 08:00] VITALS: BP 134/61; TEMP 97.6
== END 2023-07-18 10:40 | disposition home or self-care (01) ==
LOC: ED 13:51 → MED/SURG 15:11
PROVIDERS: Family Medicine; ADMIT Nurse Practitioner Family; ATTEND Internal Medicine Endocrinology, Diabetes & Metabolism
DX: R07.89 Other chest pain (principal); R06.02 Shortness of breath; Z72.0 Tobacco use; E11.9 Type 2 diabetes mellitus without complications; E66.01 Morbid (severe) obesity due to excess calories; Z68.42 Body mass index [BMI] 45.0-49.9, adult; I10 Essential (primary) hypertension; E78.49 Other hyperlipidemia; K21.9 Gastro-esophageal reflux disease without esophagitis; G62.9 Polyneuropathy, unspecified
CPT/HCPCS: 80048; 80053; 84484; 85027; 93005; 99221; 99283; G0378; J1650

== ENCOUNTER 2023-07-28 08:40 | Observation (INO) | payer OTHER ==
[~2023-07-28] VITALS: Ht 180.3 cm; Wt 146.1 kg
[~2023-07-28 08:40] MED LIST changes: +BURDOCK ROOT PO; +IBU800 MG PO; +NITR100C56 PO
[2023-07-28 08:45] VITALS: BP 138/78; TEMP 98.6
[2023-07-28 09:29] LABS: PLATELET COUNT 164 K/uL (142-355)
[2023-07-28 09:33] LABS: POTASSIUM 4.2 mmol/L (3.6-5.2)
[2023-07-28 12:45] VITALS: BP 149/76; TEMP 97.8
[2023-07-28 14:11] VITALS: BP 149/76; TEMP 97.8; Ht 180.3 cm; Wt 146.1 kg
[2023-07-28 16:00] VITALS: BP 121/61; TEMP 97.7
[2023-07-28] MEDS ORDERED: COZAAR100 MG PO (19:36)
[2023-07-28] MEDS ORDERED: GABA100C2 PO (19:37)
[2023-07-28] MEDS ORDERED: PANTOPRAZOLE 40MG TA PO (19:37)
[2023-07-28] MEDS ORDERED: FAMO20TA4 PO (19:41)
[2023-07-28] MEDS ORDERED: MOME50SP NAS (19:44)
[2023-07-28] MEDS ORDERED: OMEP20CA PO (19:45)
[2023-07-28 20:00] VITALS: BP 118/66; TEMP 97.5
[2023-07-29] VITALS: BP 106/53; TEMP 97.5
[2023-07-29 04:00] VITALS: BP 131/65; TEMP 97.9
[2023-07-29 08:00] VITALS: BP 158/81; TEMP 97.7
== END 2023-07-29 09:54 | disposition home or self-care (01) ==
LOC: ED 08:40 → MED/SURG 10:47
PROVIDERS: Family Medicine; ADMIT Internal Medicine Endocrinology, Diabetes & Metabolism; ATTEND Internal Medicine Endocrinology, Diabetes & Metabolism
DX: R07.89 Other chest pain (principal); R06.02 Shortness of breath; Z72.0 Tobacco use; E11.9 Type 2 diabetes mellitus without complications; E66.01 Morbid (severe) obesity due to excess calories; Z68.42 Body mass index [BMI] 45.0-49.9, adult; I10 Essential (primary) hypertension; E78.49 Other hyperlipidemia; K21.9 Gastro-esophageal reflux disease without esophagitis; G62.9 Polyneuropathy, unspecified
CPT/HCPCS: 36415; 80053; 84484; 85027; 85379; 93005; 96372; 99221; 99284; G0378; J1650